=== PATIENT | male | born 1985 | race African-American/Black ===

== ENCOUNTER 2020-02-05 18:57 | Emergency (ER) | payer SELFPAY ==
--- NOTE | 2020-02-05 19:21 | EDPHYS ---
Physician Documentation [facility] Name: Hernesto Valadez Age: 34 yrs Sex: Male : 1985 Arrival Date: 02/05/2020 Time: 19:00 Bed 23 Private MD: Cristian Butt HPI: 02/04 19:34 This 34 yrs old Black Male presents to ER via Ambulatory with complaints of STD kb Exposure. 19:34 The patient presents with a possible STD exposure, symptoms include dysuria, yellow kb penile discharge, purulent penile discharge. Onset: The symptoms/episode began/occurred 1 week(s) ago. Modifying factors: The symptoms are alleviated by nothing, the symptoms are aggravated by urinating. Associated signs and symptoms: Pertinent positives: dysuria, Pertinent negatives: abdominal pain, constipation, diarrhea, fever, hematuria, nausea, vomiting. Severity of symptoms: At their worst the symptoms were moderate, in the emergency department the symptoms are unchanged. The patient has not experienced similar symptoms in the past. The patient has not recently seen a physician. Historical: - Allergies: 19:15 No Known Allergies; hb - Home Meds: 19:15 None [Active]; hb - PSHx: 19:15 Appendectomy; hb - Immunization history:: Adult Immunizations up to date. - Social history:: Smoking status: Patient reports the use of cigarette tobacco products, smokes one-half pack cigarettes per day. ROS: 19:34 Constitutional: Negative for fever, chills, and weight loss, Cardiovascular: Negative kb for chest pain, palpitations, and edema, Respiratory: Negative for shortness of breath, cough, wheezing, and pleuritic chest pain, Abdomen/GI: Negative for abdominal pain, nausea, vomiting, diarrhea, and constipation, Back: Negative for injury and pain, MS/Extremity: Negative for injury and deformity, Skin: Negative for injury, rash, and discoloration, Neuro: Negative for headache, weakness, numbness, tingling, and seizure. 19:34 : Positive for burning with urination, penile discharge. Exam: 19:34 Constitutional: This is a well developed, well nourished patient who is awake, alert, kb and in no acute distress. Head/Face: Normocephalic, atraumatic. Chest/axilla: Normal chest wall appearance and motion. Nontender with no deformity. No lesions are appreciated. Cardiovascular: Regular rate and rhythm with a normal S1 and S2. No gallops, murmurs, or rubs. Normal PMI, no JVD. No pulse deficits. Respiratory: Lungs have equal breath sounds bilaterally, clear to auscultation and percussion. No rales, rhonchi or wheezes noted. No increased work of breathing, no retractions or nasal flaring. Abdomen/GI: Soft, non-tender, with normal bowel sounds. No distension or tympany. No guarding or rebound. No evidence of tenderness throughout. Back: No spinal tenderness. No costovertebral tenderness. Full range of motion. Skin: Warm, dry with normal turgor. Normal color with no rashes, no lesions, and no evidence of cellulitis. MS/ Extremity: Pulses equal, no cyanosis. Neurovascular intact. Full, normal range of motion. Neuro: Awake and alert, GCS 15, oriented to person, place, time, and situation. Cranial nerves II-XII grossly intact. Motor strength 5/5 in all extremities. Sensory grossly intact. Cerebellar exam normal. Normal gait. Vital Signs: 19:10 BP 128 / 83; Pulse 86; Resp 18; Temp 98.8; Pulse Ox 100% ; Weight 88.45 kg; Height 5 hb ft. 7 in. (170.18 cm); Pain 0/10; 19:10 Body Mass Index 30.54 (88.45 kg, 170.18 cm) hb MDM: 19:09 Patient medically screened. kb 19:20 Data reviewed: vital signs, nurses notes. Data interpreted: Pulse oximetry: on room air kb is 100 %. Interpretation: normal. Counseling: I had a detailed discussion with the patient and/or guardian regarding: the historical points, exam findings, and any diagnostic results supporting the discharge/admit diagnosis, the need for outpatient follow up, a family practitioner, to return to the emergency department if symptoms worsen or persist or if there are any questions or concerns that arise at home. Administered Medications: 19:33 Drug: Zithromax 1 grams Route: PO; ls4 19:42 Follow up: Response: No adverse reaction; Marked relief of symptoms ls4 19:34 Drug: Rocephin (cefTRIAXone) 250 mg Route: IM; Site: right gluteus; ls4 19:41 Follow up: Response: No adverse reaction; Marked relief of symptoms ls4 Disposition: 02/05 11:00 Co-signature as Attending Physician, Cirstian Warren MD I agree with the assessment and yuni plan of care. Disposition: 02/05/20 19:20 Discharged to Home. Impression: Unspecified sexually transmitted disease. - Condition is Stable. - Discharge Instructions: Sexually Transmitted Disease, [id number]. - Medication Reconciliation Form, Thank You Letter, Antibiotic Education, Prescription Opioid Use form. - Follow up: Emergency Department; When: As needed; Reason: Worsening of condition. Follow up: Private Physician; When: 2 - 3 days; Reason: Recheck today's complaints, Continuance of care, Re-evaluation by your physician. Signatures: Kayla Feliciano, DISPLAY ASSOCIATE-C DELVIN-Cristian Parham MD MD cha Baxter, Heather, RN RN Gita Hoffman RN RN ls4 Corrections: (The following items were deleted from the chart) 02/04 19:42 19:20 02/05/2020 19:20 Discharged to Home. Impression: Unspecified sexually transmitted ls4 disease. Condition is Stable. Forms are Medication Reconciliation Form, Thank You Letter, Antibiotic Education, Prescription Opioid Use. Follow up: Emergency Department; When: As needed; Reason: Worsening of condition. Follow up: Private Physician; When: 2 - 3 days; Reason: Recheck today's complaints, Continuance of care, Re-evaluation by your physician. kb
--- NOTE | 2020-02-05 19:21 | ER ---
Nurse's Notes [facility] Name: Hernesto Valadez Age: 34 yrs Sex: Male : 1985 Arrival Date: 02/05/2020 Time: 19:00 Bed 23 Private MD: Diagnosis: Unspecified sexually transmitted disease Presentation: 02/04 19:10 Chief complaint: Patient states: white/yellow penile discharge that started a week ago. hb Intermittent dysuria. Coronavirus screen: Client denies travel out of the [place] in the last 14 days. At this time, the client does not indicate any symptoms associated with coronavirus-19. Ebola Screen: Patient negative for fever greater than or equal to 101.5 degrees Fahrenheit, and additional compatible Ebola Virus Disease symptoms Patient denies exposure to infectious person. Patient denies travel to an Ebola-affected area in the 21 days before illness onset. No symptoms or risks identified at this time. Initial Sepsis Screen: Does the patient meet any 2 criteria? No. Patient's initial sepsis screen is negative. Does the patient have a suspected source of infection? No. Patient's initial sepsis screen is negative. Risk Assessment: Do you want to hurt yourself or someone else? Patient reports no desire to harm self or others. Onset of symptoms was January 29, 2020. 19:10 Method Of Arrival: Ambulatory hb 19:10 Acuity: BRAYDEN 4 hb Triage Assessment: 19:15 General: Appears in no apparent distress. Behavior is calm, cooperative. Pain: Denies hb pain. Historical: - Allergies: 19:15 No Known Allergies; hb - Home Meds: 19:15 None [Active]; hb - PSHx: 19:15 Appendectomy; hb - Immunization history:: Adult Immunizations up to date. - Social history:: Smoking status: Patient reports the use of cigarette tobacco products, smokes one-half pack cigarettes per day. Assessment: 19:34 General: deferred to DIRECTOR OF SPECIAL EDUCATION . ls4 Vital Signs: 19:10 BP 128 / 83; Pulse 86; Resp 18; Temp 98.8; Pulse Ox 100% ; Weight 88.45 kg; Height 5 hb ft. 7 in. (170.18 cm); Pain 0/10; 19:10 Body Mass Index 30.54 (88.45 kg, 170.18 cm) hb ED Course: 19:00 Patient arrived in ED. mr 19:02 Kayla Feliciano FNP-C is [facility]. kb 19:02 Cristian Warren MD is Attending Physician. kb 19:15 Triage completed. hb 19:15 Arm band placed on left wrist. 19:41 Gita Jacobsen, RN is Primary Nurse. ls4 Administered Medications: 19:33 Drug: Zithromax 1 grams Route: PO; ls4 19:42 Follow up: Response: No adverse reaction; Marked relief of symptoms ls4 19:34 Drug: Rocephin (cefTRIAXone) 250 mg Route: IM; Site: right gluteus; ls4 19:41 Follow up: Response: No adverse reaction; Marked relief of symptoms ls4 Outcome: 19:20 Discharge ordered by . kb 19:34 Discharged to home ambulatory. ls4 19:34 Condition: good 19:34 Discharge instructions given to patient. 19:42 Patient left the ED. ls4 Signatures: Kayla Feliciano FNP-C FNP-Ckb Rivera, Mary mr EastmanRose, RN RN Gita Jacobsen, RN RN ls4
[2020-02-05 19:49] VITALS: BP 128/83; TEMP 98.8; O2SAT 100
== END 2020-02-05 19:42 | disposition home or self-care (01) ==
LOC: ER 18:57
DX: A64 Unspecified sexually transmitted disease (principal); F17.210 Nicotine dependence, cigarettes, uncomplicated
CPT/HCPCS: 96372; 99283

== ENCOUNTER 2021-01-25 21:43 | Emergency (ER) | payer SELFPAY ==
[2021-01-25] MEDS ORDERED: ACETAMINOPHEN 325 MG TABLET ONE (23:02)
--- NOTE | 2021-01-26 00:40 | EDPHYS ---
Physician Documentation [facility] Name: Hernesto Valadez Age: 35 yrs Sex: Male : 1985 Arrival Date: 01/25/2021 Time: 21:47 Bed DIS11 Private MD: ED Physician Jose Torrez HPI: 01/25 23:50 This 35 yrs old Black Male presents to ER via Ambulatory with complaints of Cough, mh7 Sinus Congestion, Sinus Pain. 23:50 The patient or guardian reports cough, that is intermittent, described as mild, with no mh7 sputum, Nasal congestion, runny nose, sinus pain. Onset: The symptoms/episode began/occurred 3 day(s) ago. Severity of symptoms: At their worst the symptoms were mild, 2 day(s) ago, in the emergency department the symptoms have improved, moderately. Modifying factors: The symptoms are alleviated by nothing, the symptoms are aggravated by nothing. Associated signs and symptoms: Pertinent positives: rhinorrhea, Pertinent negatives: chest pain, diarrhea, ear ache, fever, nausea, sore throat, vomiting. Patient reports that 2 other family members have similar symptoms. He denies any fever, chest pain, shortness of breath, nausea, vomiting, abdominal pain, dizziness, numbness/tingling, weakness, or dysuria. Denies any recent travel. Historical: - Allergies: 22:33 No Known Allergies; kg - Home Meds: 22:33 None [Active]; kg - PMHx: 22:33 None; kg - PSHx: 22:33 Left knee sx; Left Foot Sx; Appendectomy; kg - Immunization history:: Adult Immunizations not up to date, Client reports having NOT received the Covid vaccine. - Social history:: Smoking status: Patient denies any tobacco usage or history of. Patient uses alcohol, occasionally. ROS: 23:50 Constitutional: Negative for fever, chills, and weight loss, Eyes: Negative for injury, mh7 pain, redness, and discharge, Neck: Negative for injury, pain, and swelling, Cardiovascular: Negative for chest pain, palpitations, and edema, Abdomen/GI: Negative for abdominal pain, nausea, vomiting, diarrhea, and constipation, Back: Negative for injury and pain, : Negative for injury, bleeding, discharge, and swelling, MS/Extremity: Negative for injury and deformity, Skin: Negative for injury, rash, and discoloration, Neuro: Negative for headache, weakness, numbness, tingling, and seizure, Psych: Negative for depression, anxiety, suicide ideation, homicidal ideation, and hallucinations, Allergy/Immunology: Negative for hives, rash, and allergies, Endocrine: Negative for neck swelling, polydipsia, polyuria, polyphagia, and marked weight changes, Hematologic/Lymphatic: Negative for swollen nodes, abnormal bleeding, and unusual bruising. Exam: 23:50 Constitutional: This is a well developed, well nourished patient who is awake, alert, mh7 and in no acute distress. 23:50 Eyes: Pupils equal round and reactive to light, extra-ocular motions intact. Lids and lashes normal. Conjunctiva and sclera are non-icteric and not injected. Cornea within normal limits. Periorbital areas with no swelling, redness, or edema. ENT: Nares patent. No nasal discharge, no septal abnormalities noted. Tympanic membranes are normal and external auditory canals are clear. Oropharynx with no redness, swelling, or masses, exudates, or evidence of obstruction, uvula midline. Mucous membranes moist. Neck: Trachea midline, no thyromegaly or masses palpated, and no cervical lymphadenopathy. Supple, full range of motion without nuchal rigidity, or vertebral point tenderness. No Meningismus. Chest/axilla: Normal chest wall appearance and motion. Nontender with no deformity. No lesions are appreciated. Cardiovascular: Regular rate and rhythm with a normal S1 and S2. No gallops, murmurs, or rubs. Normal PMI, no JVD. No pulse deficits. Respiratory: Lungs have equal breath sounds bilaterally, clear to auscultation and percussion. No rales, rhonchi or wheezes noted. No increased work of breathing, no retractions or nasal flaring. Abdomen/GI: Soft, non-tender, with normal bowel sounds. No distension or tympany. No guarding or rebound. No evidence of tenderness throughout. Back: No spinal tenderness. No costovertebral tenderness. Full range of motion. Skin: Warm, dry with normal turgor. Normal color with no rashes, no lesions, and no evidence of cellulitis. MS/ Extremity: Pulses equal, no cyanosis. Neurovascular intact. Full, normal range of motion. Neuro: Awake and alert, GCS 15, oriented to person, place, time, and situation. Cranial nerves II-XII grossly intact. Motor strength 5/5 in all extremities. Sensory grossly intact. Cerebellar exam normal. Normal gait. Psych: Awake, alert, with orientation to person, place and time. Behavior, mood, and affect are within normal limits. 23:50 Head/face: Sinus tenderness, that is mild, is located over the right ethmoid sinus, left ethmoid sinus, right maxillary sinus and left maxillary sinus. Vital Signs: 22:31 BP 120 / 79; Pulse 78; Resp 20; Temp 99.2(O); Pulse Ox 100% on R/A; Weight 94.35 kg kg (R); Height 5 ft. 7 in. (170.18 cm) (R); Pain 5/10; 01/26 00:57 Pulse 66; Pulse Ox 99% ; em 01/25 22:31 Body Mass Index 32.58 (94.35 kg, 170.18 cm) kg MDM: 00:37 Differential Diagnosis: Bronchitis Influenza Upper Respiratory Infection Sinusitis 7 Allergic Rhinitis Viral Syndrome. Data reviewed: vital signs, nurses notes, lab test result(s), Covid positive. Data interpreted: Pulse oximetry: on room air is 100 %. Interpretation: normal. Counseling: I had a detailed discussion with the patient and/or guardian regarding: the historical points, exam findings, and any diagnostic results supporting the discharge/admit diagnosis, lab results, the need for outpatient follow up, to return to the emergency department if symptoms worsen or persist or if there are any questions or concerns that arise at home. Response to treatment: the patient's symptoms have markedly improved after treatment. 00:39 Patient medically screened. [facility] 01/26 00:31 Order name: SARS-COV-2 RT PCR; Complete Time: 00:31 EDMS Administered Medications: 01/25 22:41 Drug: Acetaminophen 650 mg Route: PO; kg 01/26 00:57 Follow up: Response: No adverse reaction em 00:57 Drug: predniSONE 60 mg Route: PO; em 00:57 Follow up: Response: Medication administered at discharge. em Disposition Summary: 01/26/21 00:39 Discharge Ordered Location: Home [facility] Problem: new [facility] Symptoms: have improved [facility] Condition: Stable [facility] Diagnosis - COVID mh7 Followup: [facility] - With: Private Physician - When: 1 - 2 days - Reason: Worsening of condition, Recheck today's complaints, Continuance of care, Re-evaluation by your physician Discharge Instructions: - Discharge Summary Sheet [facility] - COVID-19 [facility] - COVID-19: What Your Test Results Mean - [place] [address] - COVID-19 Frequently Asked Questions [facility] - 10 Things You Can Do to Manage Your COVID-19 Symptoms at Home - [place] [address] - COVID-19: Quarantine vs. Isolation - [place] [address] Forms: - Medication Reconciliation Form [facility] - Thank You Letter [facility] - Antibiotic Education [facility] - Prescription Opioid Use [facility] Prescriptions: - albuterol sulfate 90 mcg/actuation Inhalation HFA aerosol inhaler - inhale 2 puff by INHALATION route every 6 hours As needed; 1 Inhaler; Refills: [facility] 0, Product Selection Permitted - Zithromax Z-Earl 250 mg Oral Tablet - take 1 tablet by ORAL route as directed for 5 days Day 1 - take two (2) tablets [facility] one time. Day 2, 3, 4 , 5 take one (1) tablet once daily.; 6 tablet; Refills: 0, Product Selection Permitted - Prednisone 20 mg Oral Tablet - take 2 tablets by ORAL route once daily for 5 days; 10 tablet; Refills: 0, [facility] Product Selection Permitted Signatures: Dispatcher [employer] Romero Leija, RN RN Jose Torrez MD MD [facility] Shirlene King RN RN kg Corrections: (The following items were deleted from the chart) 01/25 22:34 22:33 PSHx: None; kg kg 23:38 22:37 CORONAVIRUS+MR.LAB.BRZ ordered. MAURICETX LEIDY
--- NOTE | 2021-01-26 00:40 | ER ---
Nurse's Notes [facility] Name: Hernesto Valadez Age: 35 yrs Sex: Male : 1985 Arrival Date: 01/25/2021 Time: 21:47 Bed DIS11 Private MD: Diagnosis: COVID Presentation: 01/25 22:31 Chief complaint: Patient states: Sinus pressure, headache, nasal drainage, cough x 5 kg days. Coronavirus screen: Vaccine status: Patient reports being unvaccinated. Ebola Screen: Patient negative for fever greater than or equal to 101.5 degrees Fahrenheit, and additional compatible Ebola Virus Disease symptoms Patient denies exposure to infectious person. Patient denies travel to an Ebola-affected area in the 21 days before illness onset. Initial Sepsis Screen: Does the patient meet any 2 criteria? No. Patient's initial sepsis screen is negative. Does the patient have a suspected source of infection? No. Patient's initial sepsis screen is negative. Risk Assessment: Do you want to hurt yourself or someone else? Patient reports no desire to harm self or others. Onset of symptoms was January 21, 2021. 22:31 Method Of Arrival: Ambulatory kg 22:31 Acuity: BRAYDEN 4 kg Triage Assessment: 22:33 Headache History: Denies prior headaches. General: Appears in no apparent distress. kg Behavior is calm, cooperative, appropriate for age, quiet. Pain: Complains of pain in Head, behind eyes Pain currently is 5 out of 10 on a pain scale. at worst was 7 out of 10 on a pain scale. level that patient reports is acceptable is 4 out of 10 on a pain scale. Pain began 2-3 days ago. Neuro: No deficits noted. Historical: - Allergies: 22:33 No Known Allergies; kg - Home Meds: 22:33 None [Active]; kg - PMHx: 22:33 None; kg - PSHx: 22:33 Left knee sx; Left Foot Sx; Appendectomy; kg - Immunization history:: Adult Immunizations not up to date, Client reports having NOT received the Covid vaccine. - Social history:: Smoking status: Patient denies any tobacco usage or history of. Patient uses alcohol, occasionally. Screenin:35 Abuse screen: Denies threats or abuse. Denies injuries from another. Nutritional kg screening: No deficits noted. Tuberculosis screening: No symptoms or risk factors identified. Fall Risk None identified. Assessment: 01/26 00:50 General: Appears in no apparent distress. comfortable, Behavior is calm, cooperative, em appropriate for age. Pain:. Neuro: Level of Consciousness is awake, alert, obeys commands, Oriented to person, place, time, situation. Cardiovascular: Capillary refill < 3 seconds Patient's skin is warm and dry. Respiratory: Airway is patent Respiratory effort is even, unlabored, Respiratory pattern is regular, symmetrical. Derm: Skin is intact, is healthy with good turgor, Skin is pink, warm \T\ dry. Musculoskeletal: Capillary refill < 3 seconds, Range of motion: intact in all extremities. Vital Signs: 01/25 22:31 BP 120 / 79; Pulse 78; Resp 20; Temp 99.2(O); Pulse Ox 100% on R/A; Weight 94.35 kg kg (R); Height 5 ft. 7 in. (170.18 cm) (R); Pain 5/10; 01/26 00:57 Pulse 66; Pulse Ox 99% ; em 01/25 22:31 Body Mass Index 32.58 (94.35 kg, 170.18 cm) kg ED Course: 01/25 21:47 Patient arrived in ED. bp1 22:33 Triage completed. kg 22:35 Patient has correct armband on for positive identification. kg 23:38 Jose Torrez MD is Attending Physician. [facility] 23:54 Romero Rosenthal, RN is Primary Nurse. em 01/26 00:58 No provider procedures requiring assistance completed. Patient did not have IV access em during this emergency room visit. Administered Medications: 01/25 22:41 Drug: Acetaminophen 650 mg Route: PO; kg 01/26 00:57 Follow up: Response: No adverse reaction em 00:57 Drug: predniSONE 60 mg Route: PO; em 00:57 Follow up: Response: Medication administered at discharge. em Outcome: 00:39 Discharge ordered by . [facility] 00:58 Discharged to home ambulatory. em 00:58 Condition: good 00:58 Discharge instructions given to patient, Instructed on discharge instructions, follow up and referral plans. medication usage, Demonstrated understanding of instructions, follow-up care, medications, Prescriptions given X 3. 00:58 Patient left the ED. em Signatures: Romero Rosenthal, RN RN Carlotta Savage Maurice, MD MD mh7 Shirlene King RN RN kg Corrections: (The following items were deleted from the chart) 01/25 22:34 22:33 PSHx: None; sanjay kg
[2021-01-26 01:07] VITALS: BP 120/79; TEMP 99.2
[2021-01-26 01:08] VITALS: O2SAT 99
[2021-01-26] MEDS ORDERED: predniSONE 20 MG TAB ONE (01:13)
== END 2021-01-26 00:58 | disposition home or self-care (01) ==
LOC: ER 21:43
DX: U07.1 COVID-19 (principal)
CPT/HCPCS: 99283; J7512; U0003

== ENCOUNTER 2021-08-13 14:03 | Emergency (ER) | payer OTHER ==
--- NOTE | 2021-08-13 14:38 | ER ---
Nurse's Notes [facility] Name: Hernesto Valadez Age: 36 yrs Sex: Male : 1985 Arrival Date: 08/13/2021 Time: 14:07 Bed 12 Private MD: Diagnosis: Acute pharyngitis, unspecified Presentation: 08/13 14:15 Chief complaint: Patient states: pt presented to ED reporting cough congestion and sore mcguire throat x3 days. pt stated that he is feeling better but needs a work note and to be cleared to return to work. Coronavirus screen: Vaccine status: Patient reports being unvaccinated. Ebola Screen: Patient denies travel to an Ebola-affected area in the 21 days before illness onset. Initial Sepsis Screen: Does the patient meet any 2 criteria? No. Patient's initial sepsis screen is negative. Does the patient have a suspected source of infection? No. Patient's initial sepsis screen is negative. Risk Assessment: Do you want to hurt yourself or someone else? Patient reports no desire to harm self or others. Onset of symptoms was August 09, 2021. 14:15 Method Of Arrival: Ambulatory mcguire 14:15 Acuity: BRAYDEN 4 mcguire Triage Assessment: 14:20 General: Appears in no apparent distress. Behavior is calm, cooperative. Pain: Denies mcguire pain. EENT: Reports difficulty swallowing sore throat. Respiratory: Reports cough that is Breath sounds are clear bilaterally. Historical: - Allergies: 14:20 No Known Allergies; mcguire - Home Meds: 14:20 None [Active]; mcguire - PMHx: 14:20 None; mcguire - PSHx: 14:20 Appendectomy; left foot sx; Left knee sx; mcguire - Immunization history:: Adult Immunizations up to date. - Social history:: Smoking status: Patient denies any tobacco usage or history of. Screenin:23 Abuse screen: Denies threats or abuse. Denies injuries from another. Nutritional mcguire screening: No deficits noted. Tuberculosis screening: No symptoms or risk factors identified. Fall Risk None identified. Assessment: 14:23 Cardiovascular: Respiratory: Airway is patent. mcguire 14:52 Respiratory: Breath sounds are clear bilaterally. EENT: Reports sore throat. mcguire Vital Signs: 14:15 BP 113 / 78; Pulse 74; Resp 18; Temp 98.1(T); Pulse Ox 96% ; Weight 98.88 kg; Height 5 mcguire ft. 7 in. (170.18 cm); 14:15 Body Mass Index 34.14 (98.88 kg, 170.18 cm) ED Course: 14:07 Patient arrived in ED. polina 14:18 Triage completed. mcguire 14:20 Arm band placed on right wrist. 14:22 Anselmo Villagomez PA is PHCP. [facility] 14:22 Jerome Barroso MD is Attending Physician. [facility] 14:23 Rose Simon, RN is Primary Nurse. mcguire 14:23 Patient has correct armband on for positive identification. Bed in low position. 14:23 No provider procedures requiring assistance completed. 14:43 Call light in reach. Side rails up X 1. [facility] 14:43 Strep Sent. [facility] 14:43 Strep swab sent to lab. [facility] 14:52 Patient did not have IV access during this emergency room visit. Administered Medications: No medications were administered Outcome: 14:38 Discharge ordered by . [facility] 14:52 Discharged to home 14:52 Condition: good 14:52 Discharge instructions given to patient, Prescriptions given X 1. 14:53 Patient left the ED. Signatures: Anselmo Villagomez PA PA jmm Martinez, Maria [facility] Rose Simon, DANICA RN Ngozi Maria
--- NOTE | 2021-08-13 14:39 | EDPHYS ---
Physician Documentation [facility] Name: Hernesto Valadez Age: 36 yrs Sex: Male : 1985 Arrival Date: 08/13/2021 Time: 14:07 Bed 12 Private MD: ED Physician Jerome Barroso HPI: 08/13 14:30 This 36 yrs old Black Male presents to ER via Ambulatory with complaints of Congestion. [facility] 14:30 The patient presents with sore throat. Onset: The symptoms/episode began/occurred jmm gradually, 3 day(s) ago. Modifying factors: The symptoms are alleviated by nothing, the symptoms are aggravated by nothing. Associated signs and symptoms: Pertinent positives: chills, cough. It is unknown whether or not the patient has had similar symptoms in the past. Historical: - Allergies: 14:20 No Known Allergies; mcguire - Home Meds: 14:20 None [Active]; mcguire - PMHx: 14:20 None; mcguire - PSHx: 14:20 Appendectomy; left foot sx; Left knee sx; mcguire - Immunization history:: Adult Immunizations up to date. - Social history:: Smoking status: Patient denies any tobacco usage or history of. ROS: 14:30 Constitutional: Positive for body aches, chills. jmm 14:30 ENT: Positive for sore throat. 14:30 All other systems are negative. Exam: 14:30 Constitutional: This is a well developed, well nourished patient who is awake, alert, jmm and in no acute distress. Head/Face: atraumatic. Eyes: EOMI, no conjunctival erythema appreciated 14:30 Neck: Trachea midline, Supple Chest/axilla: Normal chest wall appearance and motion. Cardiovascular: Regular rate and rhythm. No edema appreciated Respiratory: Normal respirations, no respiratory distress appreciated Abdomen/GI: Non distended, soft Back: Normal ROM Skin: General appearance color normal MS/ Extremity: Moves all extremities, no obvious deformities appreciated, no edema noted to the lower extremities Neuro: Awake and alert Psych: Behavior is normal, Mood is normal, Patient is cooperative and pleasant 14:30 ENT: Posterior pharynx: erythema, that is moderate. Vital Signs: 14:15 BP 113 / 78; Pulse 74; Resp 18; Temp 98.1(T); Pulse Ox 96% ; Weight 98.88 kg; Height 5 mcguire ft. 7 in. (170.18 cm); 14:15 Body Mass Index 34.14 (98.88 kg, 170.18 cm) mcguire MDM: 14:30 Patient medically screened. [facility] 14:36 Data reviewed: vital signs, nurses notes. Counseling: I had a detailed discussion with francis the patient and/or guardian regarding: the historical points, exam findings, and any diagnostic results supporting the discharge/admit diagnosis, the need for outpatient follow up, to return to the emergency department if symptoms worsen or persist or if there are any questions or concerns that arise at home. 08/13 14:30 Order name: Strep francis Administered Medications: No medications were administered Disposition: 18:35 Co-signature as Attending Physician, Jerome Barroso MD. rn Disposition Summary: 08/13/21 14:38 Discharge Ordered Location: Home [facility] Condition: Stable [facility] Diagnosis - Acute pharyngitis, unspecified [facility] Followup: [facility] - With: Private Physician - When: 2 - 3 days - Reason: Recheck today's complaints, Continuance of care, Re-evaluation by your physician Discharge Instructions: - Discharge Summary Sheet [facility] - Pharyngitis [facility] Forms: - Medication Reconciliation Form [facility] - Thank You Letter [facility] - Antibiotic Education [facility] - Prescription Opioid Use [facility] - Work release form iw Prescriptions: - Amoxicillin 875 mg Oral Tablet - take 1 tablet by ORAL route every 12 hours for 10 days; 20 tablet; Refills: 0, [facility] Product Selection Permitted Signatures: Dispatcher [employer] EDAnselmo Cabrera PA PA jmm Nieto, Roman, MD MD rn Rose Simon RN RN mcguire
[2021-08-13 14:57] VITALS: BP 113/78; TEMP 98.1; O2SAT 96
== END 2021-08-13 14:53 | disposition home or self-care (01) ==
LOC: ER 14:03
DX: J02.9 Acute pharyngitis, unspecified (principal)
CPT/HCPCS: 87070; 87081; 99283

== ENCOUNTER 2021-08-26 12:35 | Emergency (ER) | payer OTHER ==
[2021-08-26 13:34] LABS: Absolute Lymphocytes (CBC) 1.9 K/uL (0.7-4.9); Hematocrit 45.6 % (39.6-49.0); Lymphocytes % 32.8 % (15.3-44.8); RBC Red Blood Cell Count 5.21 M/uL (4.33-5.43)
[2021-08-26 13:49] LABS: Albumin 4.1 g/dL (3.4-5.0); Bilirubin Direct 0.2 mg/dL (0-0.2); Bilirubin Total 0.7 mg/dL (0.2-1.0); Magnesium 2.2 mg/dL (1.8-2.4); Potassium 3.9 mmol/L (3.5-5.1); Protein, Total 8.3 g/dL (6.4-8.2)
--- NOTE | 2021-08-26 15:00 | RAD REPORT ---
EXAM DESCRIPTION: Nicole Single View08/26/2021 2:42 pm CLINICAL HISTORY: Chest pain COMPARISON: none FINDINGS: The lungs appear clear of acute infiltrate. The heart is normal size IMPRESSION: No acute abnormalities displayed
--- NOTE | 2021-08-26 16:39 | ER ---
Nurse's Notes [facility] Name: Hernesto Valadez Age: 36 yrs Sex: Male : 1985 Arrival Date: 08/26/2021 Time: 12:39 Bed 26 Private MD: Diagnosis: Palpitations Presentation: 08/26 12:49 Chief complaint: Patient states: L sided chest pain that is intermittent, started last ph week, also reports palpitations, denies SOB or nausea, states that he has hx of PTSD and anxiety but this feels different. Coronavirus screen: Vaccine status: Patient reports being unvaccinated. Ebola Screen: No symptoms or risks identified at this time. Initial Sepsis Screen: Does the patient meet any 2 criteria? No. Patient's initial sepsis screen is negative. Does the patient have a suspected source of infection? No. Patient's initial sepsis screen is negative. Risk Assessment: Do you want to hurt yourself or someone else? Patient reports no desire to harm self or others. Onset of symptoms was August 26, 2021. 12:49 Method Of Arrival: Ambulatory 12:49 Acuity: BRAYDEN 3 ph Triage Assessment: 12:52 General: Appears in no apparent distress. comfortable, well groomed, Behavior is calm, ph cooperative, appropriate for age, Denies fever, feeling ill. Pain: Complains of pain in anterior aspect of left upper chest. Neuro: Level of Consciousness is awake, alert, obeys commands, Oriented to person, place, time, situation. Cardiovascular: Reports chest pain, palpitations, Denies lightheadedness, nausea, shortness of breath. Respiratory: Airway is patent Respiratory effort is even, unlabored, Respiratory pattern is regular, symmetrical. GI: No signs and/or symptoms were reported involving the gastrointestinal system. Derm: Skin is intact, is healthy with good turgor, Skin is pink, warm \T\ dry. Musculoskeletal: Circulation, motion, and sensation intact. Range of motion: intact in all extremities. Historical: - Allergies: 12:51 No Known Allergies; ph - PMHx: 12:53 PTSD; Anxiety; ph - PSHx: 12:51 Appendectomy; left foot sx; Left knee sx; ph - Immunization history:: Adult Immunizations unknown. - Social history:: Smoking status: Patient reports the use of cigarette tobacco products, denies chronic smoking, but will smoke occasionally. Screenin:21 Abuse screen: Denies threats or abuse. Denies injuries from another. Nutritional ab2 screening: No deficits noted. Tuberculosis screening: No symptoms or risk factors identified. Fall Risk None identified. Assessment: 13:20 General: Appears in no apparent distress. comfortable, Behavior is calm, cooperative, ab2 appropriate for age. Pain: Complains of pain in chest Pain does not radiate. Pain currently is 6 out of 10 on a pain scale. Pain began 2-3 days ago. Neuro: Level of Consciousness is awake, alert, obeys commands, Oriented to person, place, time, situation, Appropriate for age Laminating Machine Feeder are equal bilaterally Moves all extremities. Gait is steady, Speech is normal. Cardiovascular: Reports chest pain, Denies shortness of breath, Heart tones S1 S2 present Patient's skin is warm and dry. Cardiovascular: Rhythm is sinus rhythm. Respiratory: Airway is patent Respiratory effort is even, unlabored, Respiratory pattern is regular, symmetrical. GI: No deficits noted. No signs and/or symptoms were reported involving the gastrointestinal system. Abdomen is round non-distended. : No deficits noted. No signs and/or symptoms were reported regarding the genitourinary system. EENT: No deficits noted. No signs and/or symptoms were reported regarding the EENT system. Derm: Skin is intact, is healthy with good turgor, Skin is normal. 15:33 Reassessment: Patient appears in no apparent distress at this time. awaiting pending ab2 lab results for disposition. Pt denies any needs at this time. Lights dimmed, pt resting in bed comfortably. Vital Signs: 12:49 BP 108 / 76; Pulse 65; Resp 18; Temp 99.0(TE); Pulse Ox 100% on R/A; Weight 97.52 kg; ph Height 5 ft. 6 in. (167.64 cm); 13:21 BP 112 / 67; Pulse 61; Resp 17; Pulse Ox 100% on R/A; ab2 14:12 BP 119 / 83; Pulse 63; Resp 17; Pulse Ox 100% on R/A; ab2 14:57 BP 112 / 74; Pulse 58; Resp 17; Pulse Ox 99% on R/A; ab2 15:34 BP 115 / 80; Pulse 60; Resp 17; Pulse Ox 100% on R/A; Pain 0/10; ab2 16:46 BP 111 / 70; Pulse 61; Resp 17; Pulse Ox 100% on R/A; ab2 12:49 Body Mass Index 34.70 (97.52 kg, 167.64 cm) ph ED Course: 12:39 Patient arrived in ED. mr 12:51 Triage completed. ph 12:52 Arm band placed on. EKG completed in triage. Results shown to MD. 12:57 Anselmo Villagomez PA is PHCP. [facility] 12:57 Jerome Barroso MD is Attending Physician. [facility] 12:57 EKG done, by lab support service tech. reviewed by Jerome Barroso MD. mb7 13:07 Refugio Carter is Primary Nurse. ab2 13:19 Basic Metabolic Panel Sent. ab2 13:20 CBC with Diff Sent. ab2 13:20 D-Dimer Sent. ab2 13:20 LFT's Sent. ab2 13:20 Magnesium Sent. ab2 13:20 NT PRO-BNP Sent. ab2 13:20 Troponin HS Sent. ab2 13:20 Inserted saline lock: 20 gauge in right forearm, using aseptic technique. mb7 13:21 Patient has correct armband on for positive identification. Bed in low position. Call ab2 light in reach. Side rails up X2. journalism intern on. Pulse ox on. NIBP on. 13:21 Assist provider with bone marrow aspiration. ab2 13:21 Patient maintains SpO2 saturation greater than 95% on room air. ab2 14:44 XRAY Chest (1 view) In Process Unspecified. EDMS 16:37 Kendall Weldon MD is Referral Physician. [facility] 16:54 IV discontinued, intact, bleeding controlled, No redness/swelling at site. Pressure ab2 dressing applied. Administered Medications: No medications were administered Outcome: 16:38 Discharge ordered by MD. [facility] 16:47 Discharged to home ambulatory. ab2 16:47 Condition: good 16:54 Discharge instructions given to patient, Instructed on discharge instructions, follow ab2 up and referral plans. Demonstrated understanding of instructions, follow-up care. 16:54 Patient left the ED. ab2 Signatures: Dispatcher [employer] EDDC Anselmo Villagomez PA PA jmm Rivera, Mary mr Hall, Patricia, RN RN Susan Rubio mb7 Refugio Carter ab2
--- NOTE | 2021-08-26 16:39 | EDPHYS ---
Physician Documentation [facility] Name: Hernesto Valadez Age: 36 yrs Sex: Male : 1985 Arrival Date: 08/26/2021 Time: 12:39 Bed 26 Private MD: ED Physician Jerome Barroso HPI: 08/26 13:12 This 36 yrs old Black Male presents to ER via Ambulatory with complaints of Chest Pain, jmm Palpitations. 13:12 The patient presents with a history of heart skipping beats. Onset: The jmm symptoms/episode began/occurred acutely, just prior to arrival. Duration: The patient or guardian reports a single episode, that is still ongoing. Modifying factors: The symptoms are aggravated by nothing. The symptoms are alleviated by nothing. Associated signs and symptoms: Pertinent positives: chest pain, Pertinent negatives: SOB. The patient has not experienced similar symptoms in the past. Historical: - Allergies: 12:51 No Known Allergies; ph - PMHx: 12:53 PTSD; Anxiety; ph - PSHx: 12:51 Appendectomy; left foot sx; Left knee sx; ph - Immunization history:: Adult Immunizations unknown. - Social history:: Smoking status: Patient reports the use of cigarette tobacco products, denies chronic smoking, but will smoke occasionally. ROS: 13:12 Constitutional: Negative for fever, chills, and weight loss, Respiratory: Negative for jmm shortness of breath, cough, wheezing, and pleuritic chest pain. 13:12 Cardiovascular: Positive for palpitations. 13:12 All other systems are negative. Exam: 13:12 Constitutional: This is a well developed, well nourished patient who is awake, alert, jmm and in no acute distress. Head/Face: atraumatic. Eyes: EOMI, no conjunctival erythema appreciated ENT: Moist Mucus Membranes Neck: Trachea midline, Supple Chest/axilla: Normal chest wall appearance and motion. Cardiovascular: Regular rate and rhythm. No edema appreciated Respiratory: Normal respirations, no respiratory distress appreciated Abdomen/GI: Non distended, soft Back: Normal ROM Skin: General appearance color normal MS/ Extremity: Moves all extremities, no obvious deformities appreciated, no edema noted to the lower extremities Neuro: Awake and alert Psych: Behavior is normal, Mood is normal, Patient is cooperative and pleasant Vital Signs: 12:49 BP 108 / 76; Pulse 65; Resp 18; Temp 99.0(TE); Pulse Ox 100% on R/A; Weight 97.52 kg; ph Height 5 ft. 6 in. (167.64 cm); 13:21 BP 112 / 67; Pulse 61; Resp 17; Pulse Ox 100% on R/A; ab2 14:12 BP 119 / 83; Pulse 63; Resp 17; Pulse Ox 100% on R/A; ab2 14:57 BP 112 / 74; Pulse 58; Resp 17; Pulse Ox 99% on R/A; ab2 15:34 BP 115 / 80; Pulse 60; Resp 17; Pulse Ox 100% on R/A; Pain 0/10; ab2 16:46 BP 111 / 70; Pulse 61; Resp 17; Pulse Ox 100% on R/A; ab2 12:49 Body Mass Index 34.70 (97.52 kg, 167.64 cm) ph MDM: 13:12 Patient medically screened. [facility] 16:00 Data reviewed: vital signs, nurses notes. Counseling: I had a detailed discussion with [facility] the patient and/or guardian regarding: the historical points, exam findings, and any diagnostic results supporting the discharge/admit diagnosis, lab results, radiology results, the need for outpatient follow up, to return to the emergency department if symptoms worsen or persist or if there are any questions or concerns that arise at home. 08/26 13:14 Order name: Basic Metabolic Panel; Complete Time: 13:50 [facility] 08/26 13:14 Order name: CBC with Diff; Complete Time: 13:37 [facility] 08/26 13:14 Order name: D-Dimer; Complete Time: 13:37 [facility] 08/26 13:14 Order name: LFT's; Complete Time: 13:50 [facility] 08/26 13:14 Order name: Magnesium; Complete Time: 13:50 [facility] 08/26 13:14 Order name: NT PRO-BNP; Complete Time: 13:50 [facility] 08/26 13:14 Order name: Troponin HS; Complete Time: 13:50 [facility] 08/26 13:14 Order name: XRAY Chest (1 view); Complete Time: 15:05 [facility] 08/26 13:14 Order name: EKG; Complete Time: 13:15 [facility] 08/26 13:14 Order name: Cardiac monitoring; Complete Time: 13:19 [facility] 08/26 13:14 Order name: EKG - Nurse/Tech; Complete Time: 13:19 [facility] 08/26 13:14 Order name: IV Saline Lock; Complete Time: : [facility] 08/26 13:14 Order name: Labs collected and sent; Complete Time: 13:19 [facility] 08/26 13:31 Order name: TSH; Complete Time: 15:50 [facility] 08/26 13:14 Order name: O2 Per Protocol; Complete Time: : [facility] 08/26 13:14 Order name: O2 Sat Monitoring; Complete Time: 13:19 [facility] Administered Medications: No medications were administered Disposition: 17:07 Co-signature as Attending Physician, Jerome Barroso MD. rn Disposition Summary: 08/26/21 16:38 Discharge Ordered Location: Home [facility] Condition: Stable [facility] Diagnosis - Palpitations jm Followup: [facility] - With: Kendall Weldon MD - When: 1 - 2 days - Reason: Recheck today's complaints, Continuance of care, Re-evaluation by your physician Discharge Instructions: - Discharge Summary Sheet [facility] - Palpitations [facility] Forms: - Medication Reconciliation Form [facility] - Thank You Letter jm - Antibiotic Education [facility] - Work release form [facility] - Prescription Opioid Use [facility] Signatures: Dispatcher [employer] Anselmo Hargrove PA PA jmm Nieto, Roman, MD MD rn Audra Crespo RN RN
[2021-08-26 17:01] VITALS: TEMP 99
[2021-08-26 17:06] VITALS: O2SAT 100
[2021-08-26 17:07] VITALS: BP 111/70
--- NOTE | 2021-08-27 08:31 | EKG ---
Test Date: 2021-08-26 Test Time: 12:55:22 Quarter Supervisor: MEASUREMENT RESULTS: Intervals: Rate: 63 WI: 168 QRSD: 78 QT: 396 QTc: 405 [place]: P: 67 WI: 168 QRS: 59 T: 17 INTERPRETIVE STATEMENTS: Normal sinus rhythm Normal ECG No previous ECG available for comparison Electronically Signed On 08-27-21 08:28:08 CDT by Raymond Neri
== END 2021-08-26 16:54 | disposition home or self-care (01) ==
LOC: ER 12:35
DX: R00.2 Palpitations (principal); F43.10 Post-traumatic stress disorder, unspecified; F17.210 Nicotine dependence, cigarettes, uncomplicated
CPT/HCPCS: 36415; 71045; 80048; 80076; 83735; 83880; 84443; 84484; 85025; 85379; 93005; 99285

== ENCOUNTER 2025-03-02 15:19 | Emergency (ER) | payer OTHER, SELFPAY ==
--- NOTE | 2025-03-02 17:55 | EDPHYS ---
Physician Documentation [facility] Name: Hernesto Valadez Age: 39 yrs Sex: Male : 1985 Arrival Date: 03/02/2025 Time: 15:19 Bed 24 Private MD: ED Physician Marco Antonio Barry HPI: 03/02 15:57 This 39 yrs old Black Male presents to ER via Ambulatory with complaints of lightheaded.cr8 15:57 Patient is a 39-year-old male who comes emergency room complaining of lightheadedness. cr8 Reports that he was injecting himself with methamphetamine and there was a small amount of the clipper all in the container. States after that he started having lightheadedness. Denies any other symptoms.. Historical: - Allergies: 15:45 No Known Allergies; dd2 - PMHx: 15:45 Anxiety; PTSD; dd2 - PSHx: 15:45 Appendectomy; left foot sx; Left knee sx; dd2 - Immunization history:: Adult Immunizations unknown. - Infectious Disease History:: Denies. - Social history:: Smoking status: Patient reports the use of cigarette tobacco products, smokes one-half pack cigarettes per day. ROS: 18:17 Constitutional: as per HPI cr8 Exam: 17:29 Constitutional: This is a well developed, well nourished patient who is awake, alert, cr8 and in no acute distress. Cardiovascular: Regular rate and rhythm with a normal S1 and S2. No gallops, murmurs, or rubs. Respiratory: Lungs have equal breath sounds bilaterally, clear to auscultation. No rales, rhonchi or wheezes noted. No increased work of breathing. Skin: Warm, dry with normal turgor. Normal color with no rashes, no lesions, and no evidence of cellulitis. MS/ Extremity: Pulses equal, no cyanosis. Neurovascular intact. Full, normal range of motion. Neuro: Awake and alert, GCS 15, oriented to person, place, time, and situation. Cranial nerves II-XII grossly intact. Motor strength 5/5 in all extremities. Sensory grossly intact. Psych: Awake, alert, with orientation to person, place and time. Appears anxious 18:17 ECG was reviewed by the Attending Physician. cr8 Vital Signs: 15:41 BP 117 / 86; Pulse 86; Resp 18; Temp 98.4; Pulse Ox 100% on R/A; Weight 95.25 kg; Pain dd2 0/10; 16:19 BP 136 / 77; Pulse 84; Resp 18; Pulse Ox 100% ; rg5 17:05 BP 114 / 81; Pulse 86; Resp 18; Pulse Ox 99% on R/A; rg5 15:41 Pain Scale: Adult dd2 MDM: 15:43 Medical Screening Exam initiated cr8 18:17 Data reviewed: vital signs, nurses notes, EKG, radiologic studies. Independent cr8 interpretation of the following test(s) in the Emergency Department X-Ray: My interpretation is Normal cardiac silhouette, no consolidations. ED course: Exam without murmurs, pericardial rub or CHF. EKG is normal sinus rhythm, normal NM, qRS, QTc intervals, normal axis, normal ST-T wave intervals. There is no evidence of complete/incomplete bundle branch blocks, ST elevation, delta wave, epsilon wave, dagger-like Q-waves or SVT. CXR negative for pneumonia, pneumothorax, pleural effusion or widened mediastinum. Poison control was contacted by the primary care nurse. They recommended observation for a few hours for respiratory distress. They state that the amount he likely injected was minimal and not significant. We monitored the patient and he had no respiratory distress tachycardia tachypnea hypoxia. Lung sounds were within normal limits. EKG did not show any evidence of cause for his lightheadedness. Suspect that the patient became anxious and scared and asked what caused his lightheadedness. Also considered doing CBC for anemia but he said no recent bleeding, risk for bleeding. Also considered CMP to evaluate for dehydration or electrolyte abnormality but on examination he is well-hydrated so this is unlikely. Patient was discharged stable condition ambulated out without any evidence of respiratory distress.. 03/02 16:29 Order name: XRAY CXR (1 view); Complete Time: 18:06 cr8 03/02 15:52 Order name: EKG; Complete Time: 15:52 cr8 03/02 15:52 Order name: EKG - Nurse/Tech; Complete Time: 16:04 cr8 EC:02 Rate is 85 beats/min. Rhythm is regular. QRS [place] is Normal. NM interval is normal. QRS cr8 interval is normal. QT interval is normal. T waves are Normal. No ST changes noted. Clinical impression: Normal ECG. Interpreted by me. Administered Medications: No medications were administered Disposition: 20:21 I was immediately available on-site in the Emergency Department for consultation in the ms3 care of the patient. Disposition Summary: 03/02/25 17:55 Discharge Ordered Notes: Location: Home cr8 Condition: Stable cr8 Diagnosis - Dizziness and giddiness cr8 - IV drug use cr8 Followup: cr8 - With: Emergency Department - When: As needed - Reason: Trouble breathing, Worsening of condition, Recheck today's complaints, Re-evaluation by your physician Discharge Instructions: - Discharge Summary Sheet cr8 - Dizziness cr8 - Illegal Drug Use Information, Adult cr8 Forms: - Prescription Opioid Use cr8 - Patient Portal Instructions cr8 - Leadership Thank You Letter cr8 Signatures: Dispatcher [employer] EDMarco Antonio Lou, DO ms3 Paramjit Conte RN RN eligio5 ANTONIA MENSAH RN RN dd2 Benji Gutierrez, CAROUSEL OPERATOR CAROUSEL OPERATOR cr8
--- NOTE | 2025-03-02 17:55 | ER ---
Nurse's Notes [facility] Name: Hernesto Valadez Age: 39 yrs Sex: Male : 1985 Arrival Date: 03/02/2025 Time: 15:19 Bed 24 Private MD: Diagnosis: Dizziness and giddiness;IV drug use Presentation: 03/02 15:41 Chief complaint: Patient states: HE INJECTED A SMALL AMOUNT OF CLIPPER OIL IN VEIN WHEN dd2 TRYING TO DO METH ABOUT AN HOUR AGO. PT REPORTS FEELING LIGHTHEADED. Coronavirus screen: At this time, the client does not indicate any symptoms associated with coronavirus-19. Ebola Screen: No symptoms or risks identified at this time. Initial Sepsis Screen: Does the patient meet any 2 criteria? No. Patient's initial sepsis screen is negative. Does the patient have a suspected source of infection? No. Patient's initial sepsis screen is negative. Risk Assessment: Do you want to hurt yourself or someone else? Patient reports no desire to harm self or others. Onset of symptoms was March 02, 2025 at 14:45. 15:41 Method Of Arrival: Ambulatory dd2 15:41 Acuity: BRAYDEN 3 dd2 Triage Assessment: 15:45 General: Appears in no apparent distress. uncomfortable, Behavior is cooperative, dd2 appropriate for age, anxious. Pain: Denies pain. Neuro:. Neuro: Reports LIGHTHEADED. Historical: - Allergies: 15:45 No Known Allergies; dd2 - PMHx: 15:45 Anxiety; PTSD; dd2 - PSHx: 15:45 Appendectomy; left foot sx; Left knee sx; dd2 - Immunization history:: Adult Immunizations unknown. - Infectious Disease History:: Denies. - Social history:: Smoking status: Patient reports the use of cigarette tobacco products, smokes one-half pack cigarettes per day. Screenin:00 [facility] ED Fall Risk Assessment (Adult) History of falling in the last 3 months, rg5 including since admission No falls in past 3 months (0 pts) Confusion or Disorientation No (0 pts) Intoxicated or Sedated No (0 pts) Impaired Gait No (0 pts) Mobility Assist Device Used No (0 pt) Altered Elimination No (0 pt) Score/Fall Risk Level 0 - 2 = Low Risk Oriented to surroundings, Maintained a safe environment. Abuse screen: Denies threats or abuse. Nutritional screening: No deficits noted. Tuberculosis screening: No symptoms or risk factors identified. Assessment: 16:00 General: Appears in no apparent distress. comfortable, Behavior is calm, cooperative, rg5 appropriate for age. Pain: Denies pain. Neuro: Level of Consciousness is awake, alert, obeys commands, Oriented to person, place, time, situation. Cardiovascular: Patient's skin is warm and dry. Rhythm is sinus rhythm. Respiratory: Airway is patent Trachea midline Respiratory effort is even, unlabored, Respiratory pattern is regular, symmetrical. GI: Abdomen is round non-distended. : No signs and/or symptoms were reported regarding the genitourinary system. EENT: No signs and/or symptoms were reported regarding the EENT system. Derm: Skin is intact, Skin is dry, Skin is normal, Skin temperature is warm. Musculoskeletal: Circulation, motion, and sensation intact. Range of motion: intact in all extremities. 16:20 Reassessment: POISON CONTROL UPDATE- #[id number]. rg5 17:25 Reassessment: No changes from previously documented assessment. Patient and/or family rg5 updated on plan of care and expected duration. Pain level reassessed. Patient is alert, oriented x 3, equal unlabored respirations, skin warm/dry/pink. 18:03 Reassessment: Patient and/or family updated on plan of care and expected duration. Pain rg5 level reassessed. Patient is alert, oriented x 3, equal unlabored respirations, skin warm/dry/pink. Patient states feeling better. Cardiovascular: Denies chest pain. Respiratory: Airway is patent Trachea midline Respiratory effort is even, labored, Respiratory pattern is regular, symmetrical. Vital Signs: 15:41 BP 117 / 86; Pulse 86; Resp 18; Temp 98.4; Pulse Ox 100% on R/A; Weight 95.25 kg; Pain dd2 0/10; 16:19 BP 136 / 77; Pulse 84; Resp 18; Pulse Ox 100% ; rg5 17:05 BP 114 / 81; Pulse 86; Resp 18; Pulse Ox 99% on R/A; rg5 15:41 Pain Scale: Adult dd2 ED Course: 15:28 Patient arrived in ED. al6 15:36 Benji Gutierrez [facility] cr8 15:36 Marco Antonio Barry DO is Attending Physician. cr8 15:45 Triage completed. dd2 15:45 Arm band placed on right wrist. dd2 15:49 Paramjit Conte, RN is Primary Nurse. rg5 16:00 Patient has correct armband on for positive identification. Bed in low position. Call rg5 light in reach. Side rails up X 1. Door closed. Noise minimized. Warm blanket given. 16:00 No provider procedures requiring assistance completed. Patient did not have IV access rg5 during this emergency room visit. 17:38 XRAY CXR (1 view) In Process Unspecified. EDMS Administered Medications: No medications were administered Medication: 16:00 VIS not applicable for this client. rg5 Outcome: 17:55 Discharge ordered by . cr8 18:03 Discharged to home ambulatory, rg5 18:03 Condition: stable 18:03 Discharge instructions given to patient, Instructed on discharge instructions, Demonstrated understanding of instructions, 18:07 Patient left the ED. rg5 Signatures: Dispatcher [employer] EDMS Paramjit Conte RN RN rg5 ANTONIA MENSAH RN RN dd2 Ita Aldrich al6 Benji Gutierrez NP PHOTOGRAPHY COLORIST cr8 Corrections: (The following items were deleted from the chart) 16:30 16:27 Reassessment: POISON CONTROL UPDATE- #[id number] rg5 rg5
--- NOTE | 2025-03-02 18:05 | RAD REPORT ---
EXAMINATION: ONE VIEW CHEST XR CLINICAL INDICATION: Male, 39 years old.,lightheadedness TECHNIQUE: Frontal chest projection is submitted. Examination is limited by patient positioning and t echnique. COMPARISON: 08/26/2021 FINDINGS: The lungs are well inflated and clear. No pneumothorax or sizable effusion. The heart is normal in s ize. Mediastinal contours are unremarkable. IMPRESSION: No acute intrathoracic abnormalities.
[2025-03-02 18:26] VITALS: TEMP 98.4
[2025-03-02 18:28] VITALS: BP 114/81; O2SAT 99
== END 2025-03-02 18:07 | disposition home or self-care (01) ==
LOC: ER 15:19
DX: F15.90 Other stimulant use, unspecified, uncomplicated (principal); F17.210 Nicotine dependence, cigarettes, uncomplicated
CPT/HCPCS: 71045; 93005; 99283